=== PATIENT | male | born 1965 | race Caucasian/White ===

== ENCOUNTER → 2020-06-26 12:10 | Outpatient (BNVA) | payer MEDICAID, SELFPAY | PROVIDERS: PCP Internal Medicine; Referring Provider Internal Medicine; Visit Provider Nurse Practitioner Family | DX: Z76.89 Persons encountering health services in other specified circumstances (principal) ==

== ENCOUNTER 2020-09-03 06:14 | Day surgery (SDC) | payer MEDICAID, SELFPAY ==
--- NOTE | 2020-09-02 09:29 | HO.ANESPROP2 ---
Documented by User: Nathalia Drew 09/02/20 09:30 HPI - Anesthesia Eval Consult details Narrative: 55yo M for Colonoscopy [facility] Past Medical History Medical History Elevated cholesterol GERD (gastroesophageal reflux disease) Family History Family History Father Hx of type 1 diabetes mellitus Mother Alive and well Surgical History Surgical History History of appendectomy History of hernia repair Social History Social History Alcohol intake: current Alcohol intake frequency: a few times a week Alcohol type: beer Smoking Status: Never smoker Use of substances other than those prescribed or required for medical reasons: No Advance Directives: No Advance Directives Information Provided: Yes Recently lost weight without trying: No Meds Allergies Allergy/AdvReac Type Severity Reaction Status Date / Time No Known Allergies Allergy Verified 06/26/20 12:11 Home Medications Medication Instructions Recorded Confirmed Last Taken Type atorvastatin 20 mg tablet 20 mg PO DAILY 06/26/20 08/31/20 Unknown History omeprazole 20 mg capsule,delayed 20 mg PO DAILY 06/26/20 08/31/20 Unknown History release Exam Exam Date and Time: September 02, [id number] Assessment and Plan Assessment Anesthesia Assessment: Chart Reviewed Documented by User: Mica Bee 09/03/20 07:31 [facility] Past Medical History Medical History Elevated cholesterol GERD (gastroesophageal reflux disease) Family History Family History Father Hx of type 1 diabetes mellitus Mother Alive and well Surgical History Surgical History History of appendectomy History of hernia repair Social History Social History Alcohol intake: current Alcohol intake frequency: a few times a week Alcohol type: beer Smoking Status: Never smoker Use of substances other than those prescribed or required for medical reasons: No Advance Directives: No Advance Directives Information Provided: Yes Recently lost weight without trying: No Meds Allergies Allergy/AdvReac Type Severity Reaction Status Date / Time No Known Allergies Allergy Verified 06/26/20 12:11 Home Medications Medication Instructions Recorded Confirmed Last Taken Type atorvastatin 20 mg tablet 20 mg PO DAILY 06/26/20 08/31/20 Unknown History omeprazole 20 mg capsule,delayed 20 mg PO DAILY 06/26/20 08/31/20 Unknown History release Exam Airway Mallampati Class: II TM Dist: >3cm Neck ROM: Full Loose/Missing/Broken Teeth: No Heart: RRR Lungs: CTA Assessment and Plan Assessment Anesthesia Assessment: Anesthesia Plan Discussed and Chart Reviewed Final Anesthetic Review NPO: Yes ASA Class: II Final Preanesthetic Review: Meds/Allgs Chart Reviewed, Consent Obtained/Reviewed and Anes Risks/Benef Reviewed Patient Risk: Low Procedure Risk: Low Anesthetic Plan Anesthetic Plan: MAC: Disposition: Standard PACU
--- NOTE | 2020-09-02 16:40 | W.PM.OPN ---
Operative Note Operative Note Date of Service: 09/03/20 Narrative: Date of procedure: 09/03/20 Pre-op diagnosis: COLON CANCER SCREENING Post-op diagnosis: other (NEGATIVE EXAM) Procedure: COLONOSCOPY FINDINGS: RYLEY-SLIGHT DECREASE TONE-PROSTATE WNL SCOPE INTRODUCED WITHOUT DIFFICULTY NAVIGATED WITH MINIMAL REDUNDANCY TO THE CECUM. AO/VALVE-SEEN, PREP GOOD (SOME RESIDUAL LIQUID.) NO MUCOSAL LESIONS SEEN. ARV CLEAR. Anesthesia: MAC (MD ADELAIDA) Pricing Consultant: Leidy Turner MD Estimated blood loss (mL): 0 Pathology: none sent Condition: stable Disposition: PACU PLAN: REPEAT SCREENING IN 10 YEARS. (as of this exam--no Known High risk factors) Dictated By:Leidy Turner MDSigned By:<Electronically signed by Leidy Turner MD>09/03/20811 DD/ 7TD/TT: 09/03/20807Transcriptionist: THIS IS THE OFFICIAL POST OPERATIVE NOTE.
[2020-09-03 06:37] VITALS: BMI 30.1
[2020-09-03 06:46] VITALS: BP 110/77; PULSE 74; RESP 16; TEMP 36.3; O2SAT 98
[2020-09-03] MEDS: Lactated Ringers 1,000 ML 100 ML IVCONT (06:48)
--- NOTE | 2020-09-03 07:39 | P.HPSUR_ITS ---
Pre-Procedural Eval Section B Chief Complaint: screening Details of Present Illness: Colon cancer screening--NHR No changes from June pre colo visit Relevant Family History (Specify if Yes): No Relevant Social History: None Present Medications: see Short Stay Collaborative assessment Medical History: Significant History (GERD, Statin therapy, Borderline obesity) History of Previous Operations: No relevant previous surgery Allergies: Allergies Allergy/AdvReac Type Severity Reaction Status Date / Time No Known Allergies Allergy Verified 06/26/20 12:11 Review of Systems Sugical H&P ROS: Negative: Constitution, Cardiovascular, Respiratory, Gastrointe stinal, Musculoskeletal and Endocrine Exam Surgical H&P Exam: Normal: HEENT, Normal: Heart, Normal: Lungs and Normal: Abdomen Plan Diagnosis/Plan: Unchanged I have reviewed the history and physical and performed a pertinent physical examination on my patient. No changes have occurred unless specified.yes
[2020-09-03 08:08] VITALS: BP 121/81; PULSE 70; RESP 18; TEMP 36.7; O2SAT 100
--- NOTE | 2020-09-03 08:08 | PM.PROC ---
Brief Operative Note Date of procedure: 09/03/20 Pre-op diagnosis: COLON CANCER SCREENING Post-op diagnosis: other (nEGATIVE EXAM) Procedure: COLONOSCOPY FINDINGS: RYLEY-SLIGHT DECREASE TONE-PROSTATE WNL SCOPE INTRODUCED WITHOUT DIFFICULTY NAVIGATED WITH MINIMAL REDUNDANCY TO THE CECUM. AO/VALVE-SEEN, PREP GOOD (SOME RESIDUAL LIQUID.) NO MUCOSAL LESIONS SEEN. ARV CLEAR. PLAN: REPEAT SCREENING IN 10 YEARS. Anesthesia: MAC (MD ADELAIDA) Surgeon: Hong Turner Estimated blood loss (mL): 0 Pathology: none sent Condition: stable Disposition: PACU
[2020-09-03 08:23] VITALS: BP 126/86; PULSE 61; RESP 16
[2020-09-03 08:38] VITALS: BP 119/86; PULSE 77; RESP 20; TEMP 36.9
== END 2020-09-03 09:17 | disposition home or self-care (01) ==
PROVIDERS: PCP Internal Medicine; Visit Provider Internal Medicine Gastroenterology
PROC: 0DJD8ZZ Inspection of Lower Intestinal Tract, Via Natural or Artificial Opening Endoscopic (ICD-10-PCS; CPT 45378; principal; 2020-09-03 07:30)
DX: Z12.11 Encounter for screening for malignant neoplasm of colon (principal); K21.9 Gastro-esophageal reflux disease without esophagitis; Z79.899 Other long term (current) drug therapy
CPT/HCPCS: 45378

== ENCOUNTER → 2020-09-25 13:46 | Outpatient (BNVA) | payer MEDICAID, SELFPAY | PROVIDERS: PCP Internal Medicine; Visit Provider Nurse Practitioner Family ==

== ENCOUNTER → 2021-03-26 10:57 | Outpatient (BNVA) | payer MEDICAID, SELFPAY | PROVIDERS: PCP Internal Medicine; Visit Provider Surgery | DX: L72.11 Pilar cyst (principal) | CPT/HCPCS: 99202 ==

== ENCOUNTER 2021-04-02 12:44 | Outpatient (REF) | payer MEDICAID, SELFPAY ==
[2021-04-02 13:04] VITALS: BP 135/75; PULSE 87; RESP 16; TEMP 37.1; O2SAT 97
[2021-04-02 13:17] VITALS: BMI 30.2
[2021-04-02 13:35] VITALS: BP 122/79; PULSE 77; RESP 16; O2SAT 98
--- NOTE | 2021-04-02 13:47 | W.PM.OPN ---
Operative Note Operative Note Date of Service: 04/02/21 Narrative: Preoperative diagnosis: Pilar cyst posterior scalp Postoperative diagnosis: Same Procedure: Excision Pilar cyst posterior scalp Surgeon: Harsha Sharma MD Drafting Teacher: No physician Anesthesia: Local Indications for procedure: 55-year-old male patient presenting with a soft tissue mass located the posterior scalp which is mobile within the subcutaneous tissue suggestive of a Pilar cyst. Operative findings: 2 cm cyst in the posterior midline scalp containing oily fluid. Cyst wall was excised. Specimen: Posterior scalp cyst wall Estimated blood loss: 2 mL Complications: None Procedure details: Patient was brought to the minor surgery suite placed in a prone position. The site of surgery was confirmed in the posterior scalp. Informed consent was assured. Skin was prepped with Betadine and draped in sterile fashion. Local anesthesia consisting of 1% lidocaine was infiltrated over the cyst. Incision was then made in a transverse fashion down to the cyst wall. The Metzenbaum scissors then used to dissect the cyst wall from the surrounding subcutaneous tissue. During this dissection some oily discharge was noted within the cyst this was then evacuated and the cyst wall excised. Hemostasis was assured using light pressure. Skin was then closed using interrupted 3-0 nylon sutures. Sterile dressings consisting of 2 x 2 gauze and Tegaderm were then applied. The patient tolerated the procedure well. He was discharged to home in stable condition.
== END 2021-04-02 12:45 | disposition home or self-care (01) ==
LOC: HO.MS 12:44
PROVIDERS: PCP Internal Medicine; Visit Provider Surgery
PROC: (CPT 11422; principal; 2021-04-02 13:20)
DX: L72.11 Pilar cyst (principal)
CPT/HCPCS: 11422; 88304

== ENCOUNTER → 2021-04-09 08:56 | Outpatient (BNVA) | payer MEDICAID, SELFPAY | PROVIDERS: PCP Internal Medicine; Referring Provider Internal Medicine; Visit Provider Surgery | DX: L72.11 Pilar cyst (principal) | CPT/HCPCS: 99212 ==

== ENCOUNTER 2023-07-07 09:45 | Outpatient (REF) | payer MEDICAID, SELFPAY ==
[2023-07-07 14:51] LABS: MANUAL DIFF FLAG NO
[2023-07-07 14:58] LABS: Basophils Percent Auto 0.5 % (0-2); Eosinophils Absolute Auto 0.2 X10*3/uL (0.0-0.4); Eosinophils Percent Auto 3.1 % (0-4); Hemoglobin 14.8 g/dl (14.0-18.0); Imm Gran Abs Auto 0.01 X10*3/uL (0.00-0.03); Imm Gran Pct Auto 0.2 % (0.0-0.4); Lymphocytes Absolute Auto 2.1 X10*3/uL (1.2-4.9); Mean Corpuscular HGB Conc 32.2 g/dl (31.0-36.0); Mean Corpuscular Hemoglobin 31.4 pg (27.0-33.0); Mean Corpuscular Volume 97.5 fL (80.0-98.0); Mean Platelet Volume 10.6 fL (9.4-12.4); Monocytes Absolute Auto 0.7 X10*3/uL (0.1-1.2); Monocytes Percent Auto 10.6 % (2-11); Neutrophils Absolute Auto 3.5 x10*3/uL (2.0-8.3); Neutrophils Percent Auto 53.6 % (45-73); Platelet Count 250 X10*3/uL (160-400); Red Blood Count 4.72 X10*6/uL (4.60-5.80); Red Cell Distribution Width 13.9 % (11.0-16.0); White Blood Count 6.5 X10*3/uL (4.8-10.8)
[2023-07-07 15:15] LABS: Alanine Aminotransferase 26 U/L (0-40); Albumin Level 4.2 g/dL (3.5-5.0); Alkaline Phosphatase 64 U/L (39-117); Anion Gap 12 (12-20); Aspartate Amino Transferase 26 U/L (5-37); Bilirubin Total 0.5 mg/dL (0.0-1.0); Blood Urea Nitrogen 16 mg/dL (9-16); Calcium 9.4 mg/dL (8.4-10.2); Carbon Dioxide 27 mmol/L (22-29); Chloride 104 mmol/L (96-108); Cholesterol 188 mg/dL (<200); Estimated Glomerular Filt Rate > 60; Glucose Random 79 mg/dL (60-115); HDL Cholesterol 64 mg/dL (>40); LDL Cholesterol Calculated 109 mg/dL (<100); Potassium 4.9 mmol/L (3.3-5.1); Sodium 138 mmol/L (135-145); Total Protein 7.6 g/dL (6.5-8.0); Triglycerides 78 mg/dL (<150)
[2023-07-07 15:23] LABS: Prostate Specific Antigen 1.54 ng/mL (<0.05-4.0)
== END 2023-07-07 09:46 | disposition home or self-care (01) ==
LOC: HO.CHCLDS 09:45
PROVIDERS: Visit Provider Internal Medicine
DX: Z12.5 Encounter for screening for malignant neoplasm of prostate (principal); K21.9 Gastro-esophageal reflux disease without esophagitis; E78.2 Mixed hyperlipidemia
CPT/HCPCS: 36415; 80053; 80061; 84153; 84443; 85025

== ENCOUNTER 2024-02-02 08:25 | Outpatient (REF) | payer MEDICAID, SELFPAY ==
[2024-02-02 14:43] LABS: Alanine Aminotransferase 22 U/L (0-40); Alkaline Phosphatase 60 U/L (39-117); Amylase 65 U/L (28-100); Anion Gap 13 (12-20); Aspartate Amino Transferase 22 U/L (5-37); Bilirubin Total 0.5 mg/dL (0.0-1.0); Blood Urea Nitrogen 12 mg/dL (9-16); C Reactive Protein 0.16 mg/dL (< or = 0.50); Calcium 9.1 mg/dL (8.4-10.2); Carbon Dioxide 28 mmol/L (22-29); Chloride 104 mmol/L (96-108); Cholesterol 194 mg/dL (<200); Estimated Glomerular Filt Rate > 60; Glucose Random 83 mg/dL (60-115); HDL Cholesterol 65 mg/dL (>40); LDL Cholesterol Calculated 113 mg/dL (<100); Lipase 45 U/L (8-78); Potassium 4.8 mmol/L (3.3-5.1); Sodium 140 mmol/L (135-145); Total Protein 7.1 g/dL (6.5-8.0); Triglycerides 83 mg/dL (<150)
[2024-02-03 09:37] LABS: Adenovirus F 40/41 Not Detected (Not Detect.); Astrovirus Not Detected (Not Detect.); Campylobacter Not Detected (Not Detect.); Cryptosporidium Not Detected (Not Detect.); Cyclospora cayetanensis Not Detected (Not Detect.); E. coli EAEC Not Detected (Not Detect.); E. coli EPEC Detected (Not Detect.); E. coli ETEC Not Detected (Not Detect.); E. coli STEC Not Detected (Not Detect.); Entamoeba histolytica Not Detected (Not Detect.); Giardia lamblia Not Detected (Not Detect.); Norovirus GI/GII Not Detected (Not Detect.); Plesiomonas shigelloides Not Detected (Not Detect.); Rotavirus A Not Detected (Not Detect.); Salmonella Not Detected (Not Detect.); Sapovirus Not Detected (Not Detect.); Shigella sp./EIEC Not Detected (Not Detect.); Vibrio Not Detected (Not Detect.); Vibrio Cholerae Not Detected (Not Detect.); Yersinia enterocolitica Not Detected (Not Detect.)
[2024-02-12 17:14] LABS: Calprotectin, Fecal 42 mcg/g
== END 2024-02-02 08:26 | disposition home or self-care (01) ==
LOC: HO.CHCLDS 08:25
PROVIDERS: Visit Provider Internal Medicine
DX: E78.2 Mixed hyperlipidemia (principal); R19.7 Diarrhea, unspecified
CPT/HCPCS: 36415; 80053; 80061; 82150; 83690; 83993; 86140; 87507